=== PATIENT | female | born 1985 | race Caucasian/White ===

== ENCOUNTER 2021-12-05 14:06 | Emergency (ER) | payer OTHER ==
[~2021-12-05] VITALS: Ht 160 cm; Wt 90.0 kg
[2021-12-05] MEDS ORDERED: EMPA25TA3 PO (14:49)
[2021-12-05] MEDS ORDERED: ROSU20TA73 PO (14:49)
[2021-12-05 15:59] VITALS: BP 136/92
[2021-12-05] MEDS ORDERED: ACETAMINOPHEN 500 MG TABLET PO ONE (16:00)
[2021-12-05 16:25] LABS: GLUCOMETER DEV NAME(LOC) ERT.5; GLUCOSE,POINT OF CARE 88 MG/DL (70-110)
== END 2021-12-05 16:52 | disposition home or self-care (01) ==
LOC: EMS 14:15
DX: F41.0 Panic disorder [episodic paroxysmal anxiety] (principal); E11.9 Type 2 diabetes mellitus without complications; E78.00 Pure hypercholesterolemia, unspecified; I10 Essential (primary) hypertension
CPT/HCPCS: 82962; 99283